=== PATIENT | female | born 1960 | race African-American/Black ===

== ENCOUNTER 2024-03-22 03:38 | Emergency (ER) | payer OTHER ==
[~2024-03-22] VITALS: Ht 170.2 cm; Wt 113.4 kg
[2024-03-22 03:45] VITALS: BP_SYST 145; PULSE 106; RESP 19; TEMP 99.1; O2SAT 97
[2024-03-22] MEDS: methylPREDNISolone SOD SUCC/PF 62.5 MG/ML VIAL IVP ONE (04:07)
[2024-03-22] MEDS: IPRATROPIUM/ALBUTEROL SULFATE 3 ML AMPUL.NEB (DUONEB) INH ONE ×2 (04:22→04:27)
[2024-03-22 06:12] LABS: BASOPHILS % (AUTO) 0.5 % (0.0-2.0); EOSINOPHILS % (AUTO) 0.3 % (0.0-4.0); HEMATOCRIT 40.9 % (36-48); HEMOGLOBIN 13.5 g/dL (12.0-16.0); LYMPHOCYTES # (AUTO) 0.3 K/uL (1.0-5.5); LYMPHOCYTES % (AUTO) 3.8 % (20.5-51.5); MEAN CORPUSCULAR HEMOGLOBIN 29 pg (27-31); MEAN CORPUSCULAR HGB CONC 33 % (32-36); MEAN CORPUSCULAR VOLUME 89 fL (79.0-98.0); MONOCYTES # (AUTO) 0.6 K/uL (0.0-1.0); MONOCYTES % (AUTO) 7.2 % (1.7-9.3); NEUTROPHILS % (AUTO) 88.2 % (40.0-70.0); PLATELET COUNT (AUTO) 211 K/uL (130-430)
[2024-03-22 06:45] VITALS: BP_SYST 117; PULSE 106; RESP 18; O2SAT 93
[2024-03-22] MEDS ORDERED: OMEP-268 PO (07:47)
[2024-03-22] MEDS ORDERED: FAMO40TA71 PO (07:47)
[2024-03-22] MEDS: ACETAMINOPHEN 500 MG TABLET PO ONE (07:52)
[2024-03-22 08:46] LABS: INFLUENZA TYPE A Negative (NEGATIVE); INFLUENZA TYPE B NEGATIVE (NEGATIVE)
[2024-03-22 08:48] LABS: COVID19 ANTIGEN SOFIA FIA POSITIVE (NEGATIVE)
[2024-03-22 09:21] LABS: ANION GAP 6 (5-15); CALCIUM 9.5 mg/dL (8.4-11.0); CARBON DIOXIDE 32 mmol/L (23-29); CHLORIDE 104 mmol/L (98-107); CREATININE 0.78 mg/dL (0.55-1.30); GFR AFRICAN AMERICAN 97 mL/min (>90); GLUCOSE 153 mg/dL (74-106); POTASSIUM 3.4 mmol/L (3.5-5.1); SODIUM SERUM 142 mmol/L (136-145); UREA NITROGEN, BLOOD 9 mg/dL (8-21)
[2024-03-22 09:22] LABS: GFR NON AFRICAN-AMERICAN 80 mL/min (>90)
== END 2024-03-22 08:54 | disposition short-term general hospital (02) ==
LOC: SED 03:38
DX: U07.1 COVID-19 (principal); J45.901 Unspecified asthma with (acute) exacerbation; I10 Essential (primary) hypertension; Z88.0 Allergy status to penicillin; Z91.018 Allergy to other foods; Z79.899 Other long term (current) drug therapy
CPT/HCPCS: 36415; 71045; 80048; 83880; 84484; 85025; 93005; 96374; 99285; J2930